=== PATIENT | female | born 1990 | race Caucasian/White ===

== ENCOUNTER → 2016-12-10 | Outpatient (CLI) | payer BC ==
--- NOTE | 2016-12-10 11:32 | DIAGNOSTIC IMAGING REPORT ---
HYSTEROSALPINGOGRAM HISTORY: Infertility. FLUOROSCOPY TIME: 0.4 minutes.. TECHNIQUE: The cervix was cannulated by the fruit and vegetable classer-market research executive and water soluble contrast was instilled into the uterus under fluoroscopic guidance. Multiple spot images were obtained. FINDINGS: The uterine cavity is normal in size, shape, and position. The fallopian tubes are patent and there is free peritoneal spill bilaterally. IMPRESSION: Normal hysterosalpingogram. Electronically signed by: Jacob Garcia M.D. 12/10/2016 11:29 AM Dictated Date/Time: 12/10/2016 11:29 AM
--- NOTE | 2016-12-10 13:15 | OPERATIVE REPORT ---
DATE OF OPERATION: 12/10/2016 The patient is a 26-year-old nulligravida white female who presents for hysterosalpingogram as part of her infertility workup. After the speculum was placed, the cervix was prepped with Betadine. The intracervical device was placed against the cervix after single tooth tenaculum was used to grasp the anterior lip of the cervix. The radiopaque dye was then administered. The patient tolerated the procedure well. I attest to the content of the Intraoperative Record and any orders documented therein. Any exceptions are noted below. MTDD
== END | disposition home or self-care (01) ==
LOC: C.RAD 10:09
PROVIDERS: ATTEND Obstetrics & Gynecology
DX: Z31.41 Encounter for fertility testing (principal)

== ENCOUNTER → 2017-03-02 | Outpatient (CLI) | payer BC | END | disposition home or self-care (01) | LOC: C.PAPS 11:49 | PROVIDERS: ATTEND Obstetrics & Gynecology | DX: Z01.419 Encounter for gynecological examination (general) (routine) without abnormal findings (principal) ==

== ENCOUNTER → 2017-04-05 | Outpatient (CLI) | payer BC | END | disposition home or self-care (01) | LOC: C.LAB 08:26 | PROVIDERS: ATTEND Obstetrics & Gynecology | DX: N97.9 Female infertility, unspecified (principal) ==

== ENCOUNTER 2021-11-14 05:39 | Inpatient (IN) ==
--- NOTE | 2021-11-08 10:37 | Anesthesiology Consultation ---
Date of Service November 08, 2021 Assessment & Plan (1) Encounter for pre-operative examination: Chart Review Chart Review: entry level receptionist initiated -BSG to anesthesiologist discretion day of procedure (pt is Type I DM) Per nursing assessment 11/08/2021, patient resides and works in [facility]. Wears mask when required. No known Covid infection in the past 90 days. Patient is not vaccinated for Covid. No known Covid positive exposures or Covid related symptoms. Preop Covid testing scheduled 11/11/21= will await results Patient seen by [facility] 07/16/21= Patient referred for assessment echocardiography as a new patient due to her type 1 diabetes. Complete echocardiogram was performedstructurally normal heart. No evidence of major cardiac disease is detected. Normal biventricular systolic function. No effusions. No further follow-up in the cardiology clinic as necessary prior to delivery unless a new concern or question arises. I do not see any contraindication from a cardiac standpoint for her delivering at [facility] as she is planning. D&E 03/13/2020 = done under [place] with LMA #4. 1 attempt/atraumatic/good seal. History Surgery Operation Date: 11/14/21 07:30 Proposed Procedures p Section (Delivery of Baby Through Abdominal Incision) - Eliceo Weaver MD s Bilateral Tubal Ligation - Eliceo Weaver MD Height/Weight Height: 5 ft 4 in Weight: 87.543 kg Allergies Allergy/AdvReac Type Severity Reaction Status Date / Time oxycodone [From Percocet] Allergy Unknown Rash Verified 11/08/21 08:52 Medications Home Medications Medication Instructions Recorded Confirmed Last Taken blood sugar diagnostic (Contour #50 ea 04/23/20 11/06/21 Unknown Next Test Strips) blood-glucose meter (Contour Next #1 ea 04/23/20 11/06/21 Unknown EZ Meter) insulin syringe-needle U-100 0.3 #600 ea 10/11/20 11/06/21 Unknown mL 29 gauge x 1/2" (BD Insulin Syringe) insulin syringe-needle U-100 0.3 #600 ea 10/12/20 11/06/21 Unknown mL 31 gauge x 5/16" (BD Insulin Syringe Ultra-Fine) insulin aspart U-100 100 unit/mL 100 unit CONTINUOUS SUBCUTANEOUS 03/14/21 11/08/21 10/21/21 subcutaneous solution (Novolog INFUSION DAILY 90 Days #90 ml U-100 Insulin aspart) prenat.vits,silvana,[id number] 1 tab PO QAM 04/03/21 11/08/21 10/28/21 08:00 aspirin 81 mg capsule 81 mg PO QAM 10/21/21 11/08/21 10/28/21 08:00 ferrous sulfate 325 mg (65 mg 325 mg PO 2XWK 10/21/21 11/08/21 10/28/21 08:00 iron) tablet Past Medical History Medical History Anxiety History of COVID-19 DX'D 05/2021 [facility]-LOSS TASTE AND SMELL-SYMPTOMS RESOLVED Mitral valve regurgitation No recent echo/no murmur noted per 03/10/20 [place] ER visit-F/U [facility] Type 1 diabetes Past Family History Family History Father Diabetes Cancer of kidney Hypertension Denies family history of Ovarian cancer Breast cancer Colorectal cancer Past Surgical History Surgical History H/O section H/O wisdom tooth extraction History of cholecystectomy History of hysterosalpingogram 12/10/16 Hx of dilation and curettage X 2 Nausea and vomiting after administration of anesthetic agent Social History Smoking Status: Former smoker tobacco type: cigarettes Do You Dip or Chew Tobacco: No Smoking End Date: QUIT 10+ YRS AGO Hx Alcohol Use: No Hx Substance Use: No substance use type: does not use Lab Results Anesthesia Preop Results Results Anesthesia Widget: WBC 8.02 K/uL (4.8-10.8) 11/06/21 Hgb 11.7 g/dL (12.0-16.0) L 11/06/21 Hct 34.7 % (37-47) L 11/06/21 Plt 200 K/uL (130-400) 11/06/21 Na 134 mmol/L (136-145) L 11/06/21 K 3.5 mmol/L (3.5-5.1) 11/06/21 Cl 107 mmol/L (98-107) 11/06/21 CO2 22 mmol/L (21-32) 11/06/21 BUN 9 mg/dl (6-23) 11/06/21 Creat 0.61 mg/dl (0.6-1.2) 11/06/21 Glucose Level 98 mg/dl (70-99(Fasting)) 11/06/21 Testing Laboratory Results 11/04/21= URINE CULTURE: 3 types of organisms present, all low counts probable skin chaz Electrocardiogram Sinus rhythm with sinus arrhythmia at 70 bpm. Low voltage QRS in precordial leads.
[2021-11-14] MEDS ORDERED: ceFAZolin 2,000 MG in SYRINGE 0 ML IV SCH (06:00)
[2021-11-14] MEDS ORDERED: LACTATED RINGER'S 1,000 ML IV SCH ×2 (06:00→10:33)
[2021-11-14] MEDS ORDERED: CITRIC ACID/SODIUM CITRATE 15 ML UDC PO SCH (06:00)
[2021-11-14 06:24] LABS: Hematocrit (blood only) 37.3 % (37-47); Hemoglobin 12.3 g/dL (12.0-16.0); Mean Corpuscular Hemoglobin 28.8 pg (25-34); Mean Corpuscular Volume 87.4 fL (80-100); Mean Platelet Volume 10.3 fL (7.4-10.4); Platelet Count 219 K/uL (130-400); RDW Coefficient of Variation 15.7 % (11.5-14.5); RDW Standard Deviation 49.9 fL (36.4-46.3); Red Blood Count 4.27 M/uL (4.2-5.4); White Blood Count 7.93 K/uL (4.8-10.8)
[2021-11-14] MEDS ORDERED: ePHEDrine sulfate 50 MG/ML AMP IV PRN (07:25)
[2021-11-14] MEDS ORDERED: LACTATED RINGER'S 500 ML IV PRN (07:25)
[2021-11-14] MEDS ORDERED: MoRPHine SULFATE PF 1 MG/ML 10 ML AMP/VIAL INT SPINAL ONE (07:25)
[2021-11-14] MEDS ORDERED: NALOXONE HCL 0.08 MG in SYRINGE 1.8 ML IV PRN (07:25)
[2021-11-14] MEDS ORDERED: KETOROLAC 30 MG/ML VIAL IV PRN (07:25)
[2021-11-14] MEDS ORDERED: NALOXONE HCL 1 MG in SODIUM CHLORIDE 0.9% 1000ML 1,000 ML IV PRN (07:25)
[2021-11-14] MEDS ORDERED: MEPERIDINE HCL 25 MG/ML CARP/VIAL IV PRN (07:25)
[2021-11-14] MEDS ORDERED: PROMETHAZINE HCL 6.25 MG in SODIUM CHLORIDE 0.9% 50 ML IV PRN (07:25)
[2021-11-14] MEDS ORDERED: diphenhydrAMINE 50 MG/ML VIAL IV PRN (07:25)
[2021-11-14] MEDS ORDERED: HYDROmorphone INJ 0.5 MG/0.5 ML SYR IV PRN (07:25)
[2021-11-14] MEDS ORDERED: NALOXONE HCL 0.4 MG/1 ML VIAL/CARP IV PRN (07:25)
[2021-11-14] MEDS ORDERED: MoRPHine SULFATE 2 MG/ML CARP IV PRN (07:25)
[2021-11-14] MEDS ORDERED: NALBUPHINE HCL INJ 10 MG/ML AMP IV PRN (07:25)
[2021-11-14] MEDS ORDERED: ONDANSETRON INJ 2 MG/ML 2 ML VIAL IV PRN (07:25)
[2021-11-14] MEDS ORDERED: MoRPHine SULFATE PF 1 MG/ML 10 ML AMP/VIAL ONE (07:29)
[2021-11-14] MEDS ORDERED: SODIUM CHLORIDE 0.9% 1000ML 1,000 ML IV SCH (07:30)
[2021-11-14] MEDS ORDERED: NO NARCOTICS OR SEDATIVES SCH (07:30)
--- NOTE | 2021-11-14 07:30 | History & Physical Report ---
Date of Service November 14, 2021 Assessment & Plan (1) Type 1 diabetes mellitus affecting , antepartum: Plan: 31yo at 39w5d. Repeat . 1. Fetus: reactive 2. delivery: 3. Type 1 DM: Will manage via pump 4. Vitals: WNL (2) LGA (large for gestational age) fetus affecting mother, antepartum: (3) History of : (4) Term : Admission and Anticipated Discharge Date Admission Date: November 14, 2021 History of Present Illness Primary Care Provider: Aurelia Anderson 31yo at 39w5d presents with scheduled repeat . complicated by type 1 DM. OB Labs: Blood Type A Positive 04/10/21 Antibody Screen NEGATIVE 04/10/21 Hemoglobin 14.2 g/dL (12.0-16.0) 04/10/21 Hematocrit 42.9 % (37-47) 04/10/21 Mean Corpuscular Volume 92.3 fL (80-100) 04/10/21 Platelet Count 360 K/uL (130-400) 04/10/21 Rubella IgG Antibody Immune (Immune) 04/10/21 Rapid Plasma Reagin Nonreactive (Nonreactive)B 04/10/21 Hepatitis B Surface Antigen Neg (Neg) 04/10/21 HIV (1&2) Ab and P24 Ag, 4th Gener Neg (Neg) 04/10/21 Maternal Serum Alpha Fetoprotein 29.5 ng/mL 06/05/21 OB Optional Labs: Chlamydia trachomatis RNA NOT DETECTED (NOT DETECTED) 04/10/21 Neisseria gonorrhoeae RNA NOT DETECTED (NOT DETECTED) 04/10/21 Thyroid Stimulating Hormone (TSH) 2.100 uIu/ml (0.300-4.500) 05/08/21 Alpha Fetoprotein Triple Screen SEE NOTE 06/05/21 Allergies Allergy/AdvReac Type Severity Reaction Status Date / Time oxycodone [From Percocet] Allergy Unknown Rash Verified 11/14/21 06:09 Home Medications Medication Instructions Recorded Confirmed Type blood sugar diagnostic (Contour #50 ea 04/23/20 11/13/21 History Next Test Strips) blood-glucose meter (Contour Next #1 ea 04/23/20 11/13/21 History EZ Meter) insulin syringe-needle U-100 0.3 #600 ea 10/11/20 11/13/21 Rx mL 29 gauge x 1/2" (BD Insulin Syringe) insulin syringe-needle U-100 0.3 #600 ea 10/12/20 11/13/21 Rx mL 31 gauge x 5/16" (BD Insulin Syringe Ultra-Fine) insulin aspart U-100 100 unit/mL 100 unit CONTINUOUS SUBCUTANEOUS 03/14/21 11/13/21 Rx subcutaneous solution (Novolog INFUSION DAILY 90 Days #90 ml U-100 Insulin aspart) prenat.vits,silvana,zra-iuju-kyxzg 1 tab PO QAM 04/03/21 11/14/21 History aspirin 81 mg capsule 81 mg PO QAM 10/21/21 11/14/21 History ferrous sulfate 325 mg (65 mg 325 mg PO 2XWK 10/21/21 11/14/21 History iron) tablet Patient History Medical History Anxiety History of COVID-19 DX'D 05/2021 [facility]-LOSS TASTE AND SMELL-SYMPTOMS RESOLVED Mitral valve regurgitation No recent echo/no murmur noted per 03/10/[place] Type 1 diabetes Surgical History H/O section H/O wisdom tooth extraction History of cholecystectomy History of hysterosalpingogram 12/10/16 Hx of dilation and curettage X 2 Nausea and vomiting after administration of anesthetic agent Family History Father Diabetes Cancer of kidney Hypertension Denies family history of Ovarian cancer Breast cancer Colorectal cancer Social History Smoking Status: Former smoker Smoking End Date: 2011; Second Hand Exposure: No; Do You Dip or Chew Tobacco: No; Hx Alcohol Use: No Hx Substance Use: No Preferred Language: Uzbek Communication Ability: Effective Gliding Pilot Instructor Required: No Beliefs That Will Affect Care: None marital status: marital status details: Roger Vyas ([phone] Current Living Situation: Spouse and Family Current Living Situation Comment: lives with spouse and son, 2 dogs current occupational status: employed 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 @ [employer] Other Information That Helps Us Care for You: No Feels Safe at Home: Yes Safety Concerns: Feels Safe At This Time Dental Care, Regularly: Yes Physical Activity Frequency: Does not Exercise Seatbelt Use: always Sunscreen Use: Yes Assistive Devices: Glasses Assistive Devices Comment: PARTIAL Physical Exam Constitutional: WD/WN, vitals as above well developed, well nourished and + well hydrated; no acute distress Respiratory: normal respiratory effort, lungs clear to auscultation no respiratory distress, no labored breathing and no cough Cardiovascular: RRR, no murmur, no edema Heart Sounds: normal S1 and normal S2 Gastrointestinal (Abdomen): normal bowel sounds, soft, nontender, no hepatosplenomegaly Inspection/Auscultation: abdomen not distended and no abdominal edema Musculoskeletal: no cyanosis or clubbing, extremities motor strength 5/5 Head/Neck/Chest: + head abnormal to inspection Skin: no rashes, warm and dry normal turgor Psychiatric: A+Ox3, euthymic affect Apperance: appropriately dressed and appropriately groomed Genitourinary: no vaginal lesions, no adnexal mass normal external appearance and normal appearance of the urethra; no external lesions, no external swelling, no external erythema and no external laceration Speculum/Bimanual Exam: uterus nontender, no cul-de-sac fullness, no cul-de-sac tenderness and no cul-de-sac nodularity Lymphatic: no cervical or axillary lymphadenopathy Results & Data ([facility]) Vital Signs (Past 12 Hours) Vital Signs Temp Pulse Resp BP 11/14/21 07:05 36.7 C 86 20 137/88 11/14/21 07:04 91 H 129/95 11/14/21 06:08 85 135/96 11/14/21 05:57 36.5 C 18 11/14/21 05:56 83 130/97 Coding Level of Care Code None Diagnoses Type 1 diabetes mellitus affecting , antepartum O24.019 LGA (large for gestational age) fetus affecting mother, antepartum O36.60X0 History of Z98.891 Term Z34.90
[2021-11-14] MEDS ORDERED: OXYTOCIN 10 UNITS/ML 10ML VIAL ONE (08:44)
[2021-11-14] MEDS ORDERED: ONDANSETRON INJ 2 MG/ML 2 ML VIAL ONE (08:44)
[2021-11-14] MEDS ORDERED: KETOROLAC 30 MG/ML VIAL ONE (08:44)
[2021-11-14] MEDS ORDERED: PHENYLEPHRINE 100MCG/ML 5ML SYR ONE (08:44)
--- NOTE | 2021-11-14 09:00 | Post Operative Brief Note ---
PG Immediate Post Op with CF Date of Surgery November 14, 2021 Pre & Post Diagnosis Operation Date: 11/14/21 07:30 Pre-Op Diagnosis: Repeat section. Bilateral tubal ligation. Post-Op Diagnosis: Repeat section. Bilateral tubal ligation. I identified the patient and participated in the time-out.: Yes Procedure Operation Date: 11/14/21 07:30 Actual Procedures p Section in LD delivery of live male child at 0810(Bilateral) - Eliceo Weaver MD Surgeon Eliceo Weaver MD Mannequin Refinisher Dr Yost Estimated Blood Loss 500 Findings Consistent with Post-Op Diagnosis Specimens Specimen Description: a: Placenta hold b: cord blood c: portions of left and right fallopian tubes. Drains Wei Catheter (draining clear yellow urine) OB Procedure charges OB Charges [id number] Add on Tubal for C/S
[2021-11-14] MEDS ORDERED: SENNA 8.6 MG TAB PO PRN (10:33)
[2021-11-14] MEDS ORDERED: MAGNESIUM HYDROXIDE SUSP 30 ML UDC PO PRN (10:33)
[2021-11-14] MEDS ORDERED: DIPHTHERIA/TETANUS/PERTUSSIS 0.5 ML SYR/VIAL IM ONE (10:33)
[2021-11-14] MEDS ORDERED: BENZOCAINE 20% AER SPR 82.5 GM CAN EXT PRN (10:33)
[2021-11-14] MEDS ORDERED: HYDROCORTISONE ACETATE 25 MG SUPP PR PRN (10:33)
--- NOTE | 2021-11-14 11:09 | Operative Report (OR) ---
DATE OF SERVICE: 11/14/2021 PROCEDURE: Repeat low transverse section with bilateral tubal ligation. SURGEON: Eliceo Weaver MD. ASSISTANTS: Dontae Yost MD and Carline Tai, PGY1. PROCEDURE: Repeat section with bilateral tubal ligation. PREOPERATIVE DIAGNOSES: 1. Term at 39 weeks 5 days gestational age. 2. History of section x1. 3. Type 1 diabetes. POSTOPERATIVE DIAGNOSES: 1. Term at 39 weeks 5 days gestational age. 2. History of section x1. 3. Type 1 diabetes. 4. Status post delivery. ESTIMATED BLOOD LOSS: 500 mL. DRAINS: Wei catheter. FLUIDS: Continuous lactated Ringer. URINE OUTPUT: Per Wei catheter. COMPLICATIONS: None. FINDINGS: Viable male infant with weight pending and Apgars of 8 and 9 at one and five minutes respe ctively. DESCRIPTION OF PROCEDURE: The patient was taken to the operating room after consents were assured. Upon presentation, she was properly identified. Spinal anesthesia was obtained without difficulty. The patient was then prepped and draped in normal sterile fashion. A preprocedural timeout was then p erformed. A Pfannenstiel incision was then made with a knife at the prior incision location. This w as carried down to the underlying fascia with the Bovie. The fascia was then nicked at the midline w ith a knife and extended bilaterally with pickups and Sage scissors. The superior aspect of the fasc ia was then grasped with Kochers x2, elevated off the underlying rectus muscles using blunt dissectio n. Inferior aspect of the uterus was then grasped with Kochers x2 and elevated off the underlying re ctus muscles using blunt dissection. The midline was then grasped with an Allis x2, elevated and an incision was made opening the abdomina l cavity. A finger was inserted through a small incision and there was noted to be clear of adhesion s in the abdominal and other abdominal structures. The abdomen was then placed on stretch to provide adequate room for delivery. The bladder blade was inserted and a bladder flap was created. A low transverse incision was then made with a knife. The uterine cavity was then entered bluntly and plac ed on stretch to provide adequate room for delivery. The head of the was delivered through th e abdomen and was noted to be vigorous soon after delivery. A 30-second delayed cord clamping was in itiated, after which the cord was double clamped and cut. was then taken over to [facility] staff for further evaluation and remained vigorous. Cord blood was obtained. Attention was then turned to delivery of the placenta, which was delivered intact with 3-vessel cord, gentle cord traction and uterine massage. The uterus was exteriorized. Several passes were made in side the uterus to remove any remaining membranes with a wet lap. The hysterotomy was then reapproxi mated with 0 Vicryl in continuous running locked stitch. A second imbricating layer of 0 Vicryl was then performed. Bilateral tubal ligation using a modified Marvell was then performed with tubal segm ents sent to pathology for verification. The hysterotomy was then reinspected and noted to be hemost atic. Posterior cul-de-sac was cleaned of clots and debris. Uterus returned to the maternal abdomen and right and left pericolic gutters were cleaned of clots and debris. Uterus was noted to be hemos tatic. The space of Retzius, subcutaneous and muscle layers were all inspected and noted to be hemostatic. The fascia was then reapproximated with 0 Vicryl continuous running stitch. The subcutaneous layers were reapproximated including the Kvng's with 2-0 plain in a continuous running stitch. The skin w as reapproximated with 3-0 Vicryl on a Harley needle in a subcuticular stitch. Needle, sponge, and in strument counts were correct at the completion of the case. Both mother and were stable in t he immediate post-delivery period. Job ID: [id number]
[2021-11-14] MEDS: SIMETHICONE 80 MG CHEW PO SCH ×3 (12:27→22:25)
[2021-11-14] MEDS: OXYTOCIN 20 UNITS in LACTATED RINGER'S 1,000 ML IV SCH ×2 (12:28→21:47)
--- NOTE | 2021-11-14 12:35 | Anesthesiology Progress Note ---
Date of Service November 14, 2021 Anesthesia Post Procedure Vital Signs Vital Signs: Temp Pulse Resp BP Pulse Ox 11/14/21 12:32 100 H 143/75 H 11/14/21 12:29 98 H 97 11/14/21 12:24 100 H 96 11/14/21 12:21 96 H 148/86 H 11/14/21 12:19 94 H 97 11/14/21 12:14 99 H 97 11/14/21 12:12 96 H 140/84 11/14/21 12:09 68 97 11/14/21 12:04 86 97 11/14/21 12:01 82 136/86 11/14/21 11:59 88 96 11/14/21 11:54 96 H 96 11/14/21 11:51 80 139/87 11/14/21 11:49 78 95 11/14/21 11:46 20 11/14/21 11:44 92 H 96 11/14/21 11:41 87 132/87 11/14/21 11:39 92 H 97 11/14/21 11:34 95 H 98 11/14/21 11:31 86 136/94 11/14/21 11:29 98 H 99 11/14/21 11:24 92 H 98 11/14/21 11:21 83 140/94 11/14/21 11:19 96 H 98 11/14/21 11:14 93 H 98 11/14/21 11:11 90 140/95 11/14/21 11:09 89 99 11/14/21 11:04 100 H 97 11/14/21 11:01 93 H 137/92 11/14/21 11:00 36.6 C 20 11/14/21 10:59 95 H 99 11/14/21 10:54 95 H 98 11/14/21 10:51 71 134/91 11/14/21 10:49 101 H 99 11/14/21 10:44 97 H 98 11/14/21 10:41 97 H 127/90 11/14/21 10:39 99 H 99 11/14/21 10:34 86 99 11/14/21 10:31 81 139/103 H 11/14/21 10:30 20 11/14/21 10:29 94 H 99 11/14/21 10:24 80 99 11/14/21 10:21 88 139/96 03/24/22 10:19 98 H 99 11/14/21 10:14 93 H 99 11/14/21 10:12 99 H 138/92 11/14/21 10:09 90 99 11/14/21 10:04 95 H 98 11/14/21 10:02 113 H 152/99 H 11/14/21 10:00 36.7 C 20 11/14/21 09:59 75 99 11/14/21 09:54 83 100 11/14/21 09:51 86 146/90 H 11/14/21 09:50 20 11/14/21 09:49 79 99 11/14/21 09:44 81 99 11/14/21 09:43 80 144/89 H 11/14/21 09:40 20 11/14/21 09:39 87 100 11/14/21 09:34 94 H 144/87 H 99 11/14/21 09:30 20 11/14/21 09:29 102 H 100 11/14/21 09:24 88 100 11/14/21 09:20 20 11/14/21 09:19 78 99 11/14/21 09:14 78 99 11/14/21 09:11 91 H 130/96 11/14/21 09:10 16 11/14/21 09:09 104 H 98 11/14/21 09:04 82 98 11/14/21 09:01 83 129/87 11/14/21 09:00 36.5 C 20 11/14/21 07:05 36.7 C 86 20 137/88 11/14/21 07:04 91 H 129/95 11/14/21 06:08 85 135/96 11/14/21 05:57 36.5 C 18 11/14/21 05:56 83 130/97 Pain Intensity Abdomen: Pain Intensity: 2 Transfer of Care Handoff Completed per policy Notes Mental Status: alert / awake / arousable Patient Amnestic to Procedure: Yes Nausea / Vomiting: adequately controlled Pain: adequately controlled Airway Patency, RR, SpO2: stable & adequate BP & HR: stable & adequate Hydration State: stable & adequate Neuraxial Anesthesia: was administered and sensory block is resolving Anesthetic Complications: no major complications apparent and Pt Satisfied with anesthetic care
[2021-11-14] MEDS: DOCUSATE SODIUM 100 MG CAP PO SCH (22:25)
[2021-11-15] MEDS ORDERED: PROMETHAZINE HCL 25 MG in SODIUM CHLORIDE 0.9% 50 ML IV PRN (01:25)
[2021-11-15] MEDS ORDERED: ONDANSETRON INJ 2 MG/ML 2 ML VIAL IV PRN (01:25)
[2021-11-15] MEDS ORDERED: diphenhydrAMINE 50 MG/ML VIAL IV PRN (01:25)
[2021-11-15] MEDS ORDERED: diphenhydrAMINE Capsule 25 MG CAP PO PRN (01:25)
[2021-11-15] MEDS ORDERED: DC INTRASPINAL MORPHINE ONE (01:25)
[2021-11-15] MEDS: IBUPROFEN 600 MG TAB PO PRN ×4 (03:18→20:00)
[2021-11-15] MEDS: HYDROCODONE/ACETAMOPHEN 5/325MG TAB PO PRN ×4 (04:00→20:00)
[2021-11-15 07:11] LABS: Basophils # (auto) 0.02 K/uL (0-0.2); Basophils % (auto) 0.2 %; Eosinophils # (auto) 0.21 K/uL (0-0.5); Hematocrit (blood only) 34.8 % (37-47); Hemoglobin 11.9 g/dL (12.0-16.0); Immature Granulocytes # (auto) 0.03 K/uL (0.00-0.02); Immature Granulocytes % (auto) 0.3 %; Lymphocytes # (auto) 1.44 K/uL (1.2-3.4); Lymphocytes % (auto) 13.4 %; Mean Corpuscular Hemoglobin 29.8 pg (25-34); Mean Corpuscular Hgb Conc 34.2 g/dL (32-36); Mean Platelet Volume 10.2 fL (7.4-10.4); Monocytes # (auto) 0.92 K/uL (0.11-0.59); Monocytes % (auto) 8.6 %; Neutrophils # (auto) 8.11 K/uL (1.4-6.5); Neutrophils % (auto) 75.5 %; Platelet Count 203 K/uL (130-400); RDW Coefficient of Variation 15.6 % (11.5-14.5); White Blood Count 10.73 K/uL (4.8-10.8)
--- NOTE | 2021-11-15 07:39 | Obstetrical Progress Note ---
Date of Service <Carline Tai MD - Last Filed: 11/15/21 07:39> November 15, 2021 Assessment & Plan <Carline Tai MD - Last Filed: 11/15/21 07:39> (1) Encounter for care and examination after delivery: POD 1: stable, routine postoperative management * patient voiding, ambulating without difficulty * pain well controlled on analgesia * tolerating regular diet * * Observe on L&D floor today * Reassess d/c readiness tomorrow <Eliceo Weaver MD - Last Filed: 11/15/21 07:56> (1) Encounter for care and examination after delivery: Subjective <Carline Tai MD - Last Filed: 11/15/21 07:39> Post Chrissie is a 31 y/o female who is POD 1 following 39.6 WGA. She reports feeling well overall this morning. Mild cramping pain well managed on analgesics. Voiding well. Tolerating meals overnight and able to ambulate on her own. Persistent lochia with some improvement this morning. Currently . Review of Systems Denies fever, chills, sweats Denies shortness of breath, difficulty breathing, chest pain, palpitations, chest pressure. Denies breast pain. Denies dysuria. Denies headache or changes in vision. Physical Exam <Carline Tai MD - Last Filed: 11/15/21 07:39> General: Alert, oriented. No acute distress. Cardiac: Regular rate and rhythm, no murmurs/rubs/gallops. Respiratory: Clear to auscultation bilaterally a/p, no wheezes/rales/rhonchi. No increased work of breathing. Symmetrical chest rise. No respiratory distress. Abdomen: Soft, nontender, nondistended. Bowel sounds present. Uterus: Uterine fundus firm, palpable 1 cm above umbilicus. Surgical scar clean, dry, and healing well. Lower Extremities: No lower extremity edema or swelling. No deep calf pain. Akbar's negative bilaterally. Results & Data ([facility]) <Carline Tai MD - Last Filed: 11/15/21 07:39> Vital Signs (Past 12 Hours) Vital Signs Temp Pulse Resp BP Pulse Ox 11/15/21 03:10 36.9 C 75 18 129/79 98 11/15/21 01:20 16 94 11/15/21 00:20 18 96 11/14/21 23:00 37.2 C 73 18 127/86 97 11/14/21 22:10 18 97 11/14/21 21:25 18 97 11/14/21 20:40 37.1 C 78 18 146/94 H 97 11/14/21 20:20 18 98 <Eliceo Weaver MD - Last Filed: 11/15/21 07:56> Co-Signing Physician Notes Patient seen and evaluated and agree with the above findings and plan. Routine care Resident Activity Tracking <Carline Tai MD - Last Filed: 11/15/21 07:39> Resident Involvement: Resident Care Provided Care Provided: OB Delivery
[2021-11-15] MEDS: SIMETHICONE 80 MG CHEW PO SCH ×4 (08:15→20:00)
[2021-11-15] MEDS: PRENATAL VITAMIN 1 TAB PO SCH (08:15)
[2021-11-15] MEDS: DOCUSATE SODIUM 100 MG CAP PO SCH ×2 (08:16→20:00)
[2021-11-15] MEDS: FERROUS SULFATE 325 MG TAB PO SCH (08:16)
[2021-11-15] MEDS ORDERED: bisacodyL 5 MG TABEC PO SCH (20:00)
[2021-11-16] MEDS: HYDROCODONE/ACETAMOPHEN 5/325MG TAB PO PRN ×3 (00:24→09:47)
[2021-11-16] MEDS: IBUPROFEN 600 MG TAB PO PRN ×2 (00:26→05:23)
--- NOTE | 2021-11-16 07:00 | Obstetrical Progress Note ---
Date of Service <Carline Tai MD - Last Filed: 11/16/21 07:00> November 16, 2021 Assessment & Plan <Carline Tai MD - Last Filed: 11/16/21 07:00> (1) Encounter for care and examination after delivery: POD 2: stable, routine postoperative management * patient voiding, ambulating without difficulty * pain well controlled on analgesia * tolerating regular diet * * anticipate d/c today * 6-week outpatient OB follow-up <Deidra Cam MD, FACOG - Last Filed: 11/16/21 08:09> (1) Encounter for care and examination after delivery: Subjective <Carline Tai MD - Last Filed: 11/16/21 07:00> Chrissie is a 31 y/o female who is POD 2 following 39.6 WGA. She reports feeling well overall this morning. Moderate cramping pain well managed on analgesics. Voiding well. Tolerating meals overnight and able to ambulate on her own. 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 Currently . Review of Systems Denies fever, chills, sweats Denies shortness of breath, difficulty breathing, chest pain, palpitations, chest pressure. Denies breast pain. Denies dysuria. Denies headache or changes in vision. Physical Exam <Carline Tai MD - Last Filed: 11/16/21 07:00> General: Alert, oriented. No acute distress. Cardiac: Regular rate and rhythm, no murmurs/rubs/gallops. Respiratory: Clear to auscultation bilaterally a/p, no wheezes/rales/rhonchi. No increased work of breathing. Symmetrical chest rise. No respiratory distress. Abdomen: Soft, nontender, nondistended. Bowel sounds present. Uterus: Uterine fundus firm, palpable 1 cm above umbilicus. Surgical scar clean, dry, and healing well. Lower Extremities: No lower extremity edema or swelling. No deep calf pain. Akbar's negative bilaterally. Results & Data ([facility]) <Carline Tai MD - Last Filed: 11/16/21 07:00> Vital Signs (Past 12 Hours) Vital Signs Temp Pulse Resp BP Pulse Ox 11/16/21 01:45 36.4 C L 72 18 128/83 97 11/15/21 20:45 36.9 C 95 H 16 129/86 95 <Deidra Cam MD, FACOG - Last Filed: 11/16/21 08:09> Co-Signing Physician Notes Resident Physician Supervision Note: I interviewed and examined the patient. Discussed with Dr. Tai and agree with findings and plan as documented in the note. Any exceptions or clarifications are listed here: Doing well. Plan d/c. Instructions given. Documented By: Deidra Cam MD, FACOG Resident Activity Tracking <Carline Tai MD - Last Filed: 11/16/21 07:00> Resident Involvement: Resident Care Provided Care Provided: OB Delivery
[2021-11-16 07:21] LABS: Hematocrit (blood only) 33.4 % (37-47); Hemoglobin 11.2 g/dL (12.0-16.0)
[2021-11-16] MEDS: SIMETHICONE 80 MG CHEW PO SCH (08:27)
[2021-11-16] MEDS: PRENATAL VITAMIN 1 TAB PO SCH (08:27)
[2021-11-16] MEDS: FERROUS SULFATE 325 MG TAB PO SCH (08:28)
[2021-11-16] MEDS: DOCUSATE SODIUM 100 MG CAP PO SCH (08:28)
[2021-11-16] MEDS ORDERED: bisacodyL 10 MG SUPP PR PRN (08:38)
--- NOTE | 2021-11-19 07:23 | Discharge Summary (DS) ---
DATE OF ADMISSION: 11/14/2021. DATE OF DISCHARGE: 11/16/2021. HOSPITAL COURSE: The patient was admitted for a scheduled repeat section. The procedure wa s performed without complication. The patient remained in-house until day 2 and was doing well and meeting all and postoperative goals and was discharged home in stable condition. The patient was provided both written and verbal discharge instructions with planned followup at 6 weeks and otherwise as indicated. Job ID: [id number]
== END 2021-11-16 12:15 | disposition home or self-care (01) | DRG 786 ==
LOC: 4S1 05:39 → EDSTATUS 07:30 → 4E1 14:06
DX: Z30.2 Encounter for sterilization; Z88.5 Allergy status to narcotic agent; O36.63X0 Maternal care for excessive fetal growth, third trimester, not applicable or unspecified; Z83.3 Family history of diabetes mellitus; O34.211 Maternal care for low transverse scar from previous cesarean delivery; O24.02 Pre-existing type 1 diabetes mellitus, in childbirth; Z3A.39 39 weeks gestation of pregnancy; Z81.2 Family history of tobacco abuse and dependence; Z86.16 Personal history of COVID-19; Z37.0 Single live birth